=== PATIENT | male | born 1995 | race African-American/Black ===

== ENCOUNTER 2018-04-14 14:50 | Emergency (ER) | payer MEDICAID, OTHER ==
[~2018-04-14] VITALS: Ht 177.8 cm; Wt 79.4 kg
[2018-04-14 14:55] VITALS: BP 131/87
[2018-04-14 15:53] LABS: Basophils # (auto) 0.1 uL; Basophils % (auto) 0.9 % (0.0-2.0); Eosinophils # (auto) 0.2 uL; Eosinophils % (auto) 1.5 % (0.0-7.0); Hemoglobin 17.3 g/dL (13.5-17.5); Lymphocytes # (auto) 1.7 uL; Lymphocytes % (auto) 15.7 % (10.0-50.0); Mean Corpuscular Hemoglobin 32.2 pg (28.0-32.0); Mean Corpuscular Hgb Conc. 34.6 g/dL (32.0-36.0); Mean Corpuscular Volume 93.2 fL (80.0-100.0); Monocytes # (auto) 0.6 uL; Monocytes % (auto) 6.1 % (0.0-12.0); Neutrophils # (auto) 8.1 uL; Neutrophils % (auto) 75.8 % (37.0-80.0); Platelet Count (auto) 372 10^3/uL (140-450); Red Blood Cells 5.36 10^6/uL (4.5-5.90); Red Cell Distribution Width 12.8 % (11.8-14.3); White Blood Cell 10.7 10^3/uL (4.4-10.8)
[2018-04-14 16:06] LABS: Alanine Aminotransferase 56 U/L (16-61); Albumin 4.1 g/dL (3.4-5.0); Anion Gap 11 (5-15); Aspartate Aminotransferase 40 U/L (15-37); Blood Urea Nitrogen 13 mg/dL (7-18); Calcium 8.3 mg/dL (8.5-10.1); Carbon Dioxide 25 mmol/L (21-32); Chloride 100 mmol/L (98-107); GFR African American 117 mL/min; GFR Non-African American 97 mL/min; Glucose 94 mg/dL (74-106); Potassium 4.1 mmol/L (3.5-5.1); Sodium 136 mmol/L (136-145)
[2018-04-14 16:09] LABS: Alkaline Phosphatase 88 U/L (45-117); Bilirubin, Total 0.8 mg/dL (0.2-1.0); Total Protein 8.6 g/dL (6.4-8.2)
== END 2018-04-14 17:01 | disposition left against medical advice (07) ==
LOC: ER 14:55
DX: F10.10 Alcohol abuse, uncomplicated (principal); K29.00 Acute gastritis without bleeding; F17.210 Nicotine dependence, cigarettes, uncomplicated
CPT/HCPCS: 36415; 80053; 85025

== ENCOUNTER 2018-08-18 18:30 | Emergency (ER) | payer SELFPAY ==
[~2018-08-18] VITALS: Ht 165.1 cm; Wt 79.4 kg
[2018-08-18 18:41] VITALS: BP 128/81
== END 2018-08-18 23:55 | disposition left against medical advice (07) ==
LOC: ER 18:30
DX: M79.642 Pain in left hand (principal); M79.641 Pain in right hand; Z53.21 Procedure and treatment not carried out due to patient leaving prior to being seen by health care provider
CPT/HCPCS: 73100; 73120

== ENCOUNTER 2018-08-19 10:27 | Emergency (ER) | payer SELFPAY ==
[~2018-08-19] VITALS: Ht 165.1 cm; Wt 77.1 kg
[2018-08-19 10:34] VITALS: BP 123/81
== END 2018-08-19 15:12 | disposition left against medical advice (07) ==
LOC: ER 10:39
DX: M79.642 Pain in left hand (principal); M79.641 Pain in right hand; Z53.21 Procedure and treatment not carried out due to patient leaving prior to being seen by health care provider